=== PATIENT | female | born 1980 | race Caucasian/White ===

== ENCOUNTER → 2018-03-10 | Outpatient (CLI) | payer OTHER ==
[2018-03-10 18:44] LABS: BASOPHILS # (AUTO) 0.1 10^3/uL (0.0-0.1); BASOPHILS % (AUTO) 0.9 %; EOSINOPHILS # (AUTO) 0.1 10^3/uL (0.0-0.7); EOSINOPHILS % (AUTO) 0.8 %; HGB - HEMOGLOBIN 13.6 g/dL (12.0-16.0); LYMPHOCYTES # (AUTO) 2.2 10^3/uL (1.5-3.5); LYMPHOCYTES % (AUTO) 30.4 %; MEAN CORPUSCULAR HEMOGLOBIN 28.1 pg (27.0-31.0); MEAN CORPUSCULAR HGB CONC 33.6 g/dL (32.0-36.0); MEAN CORPUSCULAR VOLUME 83.6 fL (81.0-99.0); MEAN PLATELET VOLUME 8.6 fL (7.9-10.8); MONOCYTES # (AUTO) 0.6 10^3/uL (0.0-1.0); MONOCYTES % (AUTO) 7.8 %; NEUTROPHILS # (AUTO) 4.4 10^3/uL (1.5-6.6); NEUTROPHILS % (AUTO) 60.1 %; PLT - PLATELET COUNT 345 10^3/uL (130-450); RED BLOOD COUNT 4.83 10^6/uL (4.20-5.40); RED CELL DISTRIBUTION WIDTH 13.6 % (12.0-15.0); WHITE BLOOD COUNT 7.3 x10^3/uL (4.8-10.8)
[2018-03-10 18:57] LABS: ALBUMIN 4.5 g/dL (3.2-5.5); ALBUMIN/GLOBULIN RATIO 1.3 (1.0-2.2); ALKALINE PHOSPHATASE 176 IU/L (42-121); ALT ALANINE AMINOTRANSFERASE 88 IU/L (10-60); AST ASPARTATE AMINOTRANSFERASE 60 IU/L (10-42); BILIRUBIN,TOTAL 0.6 mg/dL (0.2-1.0); BUN - BLOOD UREA NITROGEN 11 mg/dL (6-20); CALCIUM 9.6 mg/dL (8.5-10.3); CARBON DIOXIDE - CO2 24 mmol/L (21-32); CHLORIDE 102 mmol/L (101-111); CHOL/HDL RATIO 3.7 (<4.4); CHOLESTEROL 176 mg/dL; CREATININE 0.6 mg/dL (0.4-1.0); GFR - MDRD 111 (>89); GLUCOSE 82 mg/dL (70-100); HDL CHOLESTEROL 48 mg/dL; LDL CHOLESTEROL,CALCULATED 101 mg/dL; LDL/HDL RATIO 2.1 (<4.4); SODIUM 135 mmol/L (135-145); VLDL CHOLESTEROL 27 mg/dL
[2018-03-10 19:14] LABS: THYROID STIMULATING HORMONE 1.93 uIU/mL (0.34-5.60)
[2018-03-10 19:16] LABS: FREE T4 (FREE THYROXINE) 0.9 ng/dL (0.58-1.64)
[2018-03-10 19:21] LABS: FERRITIN 133.4 ng/mL (11.0-306.8)
[2018-03-10 19:25] LABS: FOLATE 13.39 ng/mL (5.90 - >24.8)
[2018-03-10 19:42] LABS: HB2 TOTAL 14.2 g/dL; HEMOGLOBIN A1C 0.44 g/dL
== END ==
LOC: LAB.N 11:12
PROVIDERS: ATTEND Nurse Practitioner Family
DX: E66.9 Obesity, unspecified (principal)
CPT/HCPCS: 36415; 80053; 80061; 82306; 82607; 82728; 82746; 83036; 83721; 84439; 84443; 85025; 85027

== ENCOUNTER 2018-04-13 13:50 | Outpatient (CLI) | payer OTHER ==
[2018-04-13 19:38] LABS: ALBUMIN 4.6 g/dL (3.2-5.5); BILIRUBIN,DIRECT 0.1 mg/dL (0.1-0.5); BILIRUBIN,TOTAL 0.4 mg/dL (0.2-1.0); TOTAL PROTEIN 7.7 g/dL (6.7-8.2)
[2018-04-14 13:21] LABS: HEPATITIS C ANTIBODY NON-REACTIVE (NON-REACTIVE)
[2018-04-14 13:36] LABS: HEPATITIS B SURFACE ANTIGEN NON-REACTIVE (NON-REACTIVE)
[2018-04-14 13:37] LABS: HEPATITIS A AB TOTAL(IMMUNITY) NON-REACTIVE (NON-REACTIVE); HEPATITIS B CORE AB TOTAL NON-REACTIVE (NON-REACTIVE)
[2018-04-14 13:47] LABS: IMMUNOGLOBULIN E 9 kU/L (<OR=114)
[2018-04-15 13:02] LABS: ANA SCREEN NEGATIVE (NEGATIVE)
[2018-04-15 15:36] LABS: CERULOPLASMIN 20 mg/dL (18-53)
[2018-04-16 00:37] LABS: LIVER KIDNEY MICROSOME AB <20.0 U
== END 2018-04-13 23:59 | disposition home or self-care (01) ==
LOC: LAB.N 13:50
PROVIDERS: ATTEND Nurse Practitioner
DX: E55.9 Vitamin D deficiency, unspecified (principal); K83.1 Obstruction of bile duct; R79.89 Other specified abnormal findings of blood chemistry
CPT/HCPCS: 36415; 80076; 81599; 82103; 82306; 82390; 82785; 83516; 83540; 84466; 86038; 86255; 86317; 86376; 86704; 86708; 86803; 87340

== ENCOUNTER 2018-04-21 06:58 | Outpatient (CLI) | payer OTHER ==
--- NOTE | 2018-04-21 10:12 | Ultrasound Report ---
Reason: INTRAHEPATIC CHOLESTASIS, ABDOMINAL PAIN Procedure Date: 04/21/2018 Accession Number: [id number] / [id number] Procedure: US - Abdomen Complete CPT Code: FULL RESULT: EXAM: ABDOMEN ULTRASOUND EXAM DATE: 04/21/2018 08:34 AM. CLINICAL HISTORY: Intrahepatic cholestasis, abdominal pain. COMPARISON: None. TECHNIQUE: Real-time scanning was performed with static images obtained. FINDINGS: Liver: Liver background echotexture is heterogeneous and demonstrates increased echogenicity. This makes detection and evaluation of masses difficult. Despite this limitation, multiple suspicious-appearing relatively hypoechoic masses are seen including a 1.9 x 1.0 x 1.6 cm left lobe mass and a 3.0 x 3.2 cm right lobe mass. The entire caudate lobe is either atrophied or replaced by a mass as it is irregular-appearing, shrunken and demonstrates a different echotexture. The right lobe of the liver measures at least 16.8 cm. Main portal vein flow: Hepatopetal. Gallbladder: Normal. No stones, wall thickening, or sonographic Roca's sign. Biliary System: Common bile duct measures 3 mm. No intrahepatic or extrahepatic ductal dilatation. Pancreas: Visualized portion is unremarkable. Kidneys: Right: 10.5 cm longitudinally. Normal. No contour-deforming mass, stones, or khloe hydronephrosis. Left: 11.1 cm longitudinally. There is mild prominence of the left renal collecting system. No contour-deforming mass, stones, or khloe hydronephrosis. A 1 cm simple-appearing cyst is noted. Spleen: 11.5 cm. Normal in size and echotexture. Aorta and Inferior Vena Cava: Unremarkable. Other: None. IMPRESSION: Multiple liver masses. These are suspicious. Depending on other clinical information, recommend either CT abdomen and pelvis to rule out of source primary lesion or multiphase MRI/CT liver mass protocol for characterization of suspected primary hepatic masses. Heterogeneous echogenic liver parenchyma, possibly steatosis. Mild prominence of the left renal collecting system without khloe hydronephrosis. Correlate to renal function. [facility] ADDENDUM: 04/27/2018 07:50 Addendum is performed to correct reporting of the gallbladder on initial report of 04/21/2018: the gallbladder is surgically absent.
== END 2018-04-21 06:59 | disposition home or self-care (01) ==
LOC: DI 06:58
PROVIDERS: ATTEND Nurse Practitioner
DX: R16.0 Hepatomegaly, not elsewhere classified (principal); K83.1 Obstruction of bile duct; R10.9 Unspecified abdominal pain; G89.29 Other chronic pain
CPT/HCPCS: 76700

== ENCOUNTER 2018-05-13 14:29 | Outpatient (CLI) | payer OTHER ==
[2018-05-13 19:11] LABS: ALBUMIN 4.4 g/dL (3.2-5.5); ALBUMIN/GLOBULIN RATIO 1.3 (1.0-2.2); BILIRUBIN,TOTAL 0.4 mg/dL (0.2-1.0); CALCIUM 9.1 mg/dL (8.5-10.3); CREATININE 0.7 mg/dL (0.4-1.0); TOTAL PROTEIN 7.7 g/dL (6.7-8.2)
== END 2018-05-13 23:59 | disposition home or self-care (01) ==
LOC: LAB.N 14:29
PROVIDERS: ATTEND Nurse Practitioner
DX: R79.89 Other specified abnormal findings of blood chemistry (principal)
CPT/HCPCS: 36415; 80053

== ENCOUNTER 2018-10-17 11:08 | Outpatient (CLI) | payer OTHER ==
--- NOTE | 2018-10-18 17:54 | Ultrasound Report ---
Reason: LIVER MASS, ABNORMAL LIVER ENZYMES Procedure Date: 10/17/2018 Accession Number: [id number] / [id number] Procedure: US - Abdomen Limited CPT Code: FULL RESULT: EXAM: ABDOMEN ULTRASOUND LIMITED, RUQ EXAM DATE: 10/17/2018 12:00 PM. CLINICAL HISTORY: Liver mass. Abnormal liver enzymes. COMPARISON: Abdominal ultrasound from 04/21/2018. TECHNIQUE: Real-time scanning was performed with static images obtained. FINDINGS: Liver: There is diffuse increased hepatic parenchymal echogenicity, as seen on the prior examination. Overall hepatic size is within normal limits with the right hepatic lobe measuring 16.3 cm. As seen on the prior examination, there are multiple liver lesions. These include: 1. A 1.7 x 1.1 x 1.4 cm hypoechoic lesion in the inferior aspect of the left hepatic lobe, previously 1.9 x 1.0 x 1.6 cm. 2. Slightly hypoechoic in the posterior aspect of the right hepatic lobe measuring 4.3 x 3.9 x 4.7 cm. 3. Nearly isoechoic in the superior aspect of segment 7/8 measuring 4.6 x 2.8 x 4.0 cm. 4. Hypoechoic lesion in segment 5/6 measuring 3.3 x 1.9 x 4.4 cm. Precise comparison of lesions in the right hepatic lobe are difficult. However, on the prior examination, the largest lesion was described as measuring 3.0 x 3.2 cm; therefore, there may have been increase in size of these lesions. Main portal vein flow: Hepatopetal. Gallbladder: Not visualized. Reportedly surgically absent. Biliary System: CBD measures 4 mm. No intrahepatic or extrahepatic ductal dilatation. Other: Pancreas is not well evaluated due to overlying bowel. Right kidney measures 10.3 cm longitudinally. No hydronephrosis. IMPRESSION: 1. Diffusely increased hepatic parenchymal echogenicity, which is a nonspecific finding but is most commonly seen as sequela of hepatic steatosis. 2. Multiple hepatic lesions. Lesion in the left hepatic lobe does not appear significantly changed. Multiple lesions in the right hepatic lobe are difficult to compare to the prior examination; however, largest lesion measures up to 4.6 cm, which is greater than the previously described largest lesion. Therefore, these may have increased in size. Although potentially representing benign liver lesions, such as hemangioma, focal nodular hyperplasia, or adenoma, concerning lesions, including metastases, cannot be excluded. Further evaluation with liver MRI is recommended. RADIA
== END 2018-10-17 11:09 | disposition home or self-care (01) ==
LOC: DI 11:08
PROVIDERS: ATTEND Physician Assistant
DX: K76.89 Other specified diseases of liver (principal); R94.5 Abnormal results of liver function studies
CPT/HCPCS: 36415; 76705; 80076

== ENCOUNTER 2018-10-17 13:57 | Outpatient (CLI) | payer OTHER ==
[2018-10-17 12:27] LABS: ALBUMIN 4.3 g/dL (3.2-5.5); BILIRUBIN,DIRECT 0.1 mg/dL (0.1-0.5); BILIRUBIN,TOTAL 0.7 mg/dL (0.2-1.0); TOTAL PROTEIN 7.8 g/dL (6.7-8.2)
== END 2018-10-17 23:59 | disposition home or self-care (01) ==
LOC: LAB 13:57
PROVIDERS: ATTEND Physician Assistant
DX: K76.89 Other specified diseases of liver (principal); R94.5 Abnormal results of liver function studies
CPT/HCPCS: 36415; 80076

== ENCOUNTER 2019-10-11 06:39 | Outpatient (CLI) | payer OTHER ==
[2019-10-11 08:05] LABS: ALBUMIN 4.2 g/dL (3.2-5.5); BILIRUBIN,DIRECT 0.1 mg/dL (0.1-0.5); BILIRUBIN,TOTAL 0.8 mg/dL (0.2-1.0); TOTAL PROTEIN 7.5 g/dL (6.7-8.2)
--- NOTE | 2019-10-11 10:10 | Ultrasound Report ---
Reason: LIVER MASS Procedure Date: 10/11/2019 Accession Number: [id number] / [id number] Procedure: US - Abdomen Limited CPT Code: Final Report FULL RESULT: PROCEDURE: Abdomen Limited INDICATIONS: LIVER MASS TECHNIQUE: Real-time focused scanning was performed of the abdomen, with image documentation. COMPARISON: 10/17/2018 04/21/2018 FINDINGS: The liver echotexture is quite coarse and moderately hyperechoic. There is ill-defined mildly hypoechoic lesion in the left hepatic lobe measuring 1.8 x 1.6 x 1.0 cm. Heterogeneously hypoechoic mass in the inferior right hepatic lobe measures 2.8 x 2.3 x 3.1 cm and demonstrates internal vascularity. There is an area of relative hyperechogenicity in the superior aspect of the right upper lobe which measures 4.0 x 3.9 x 3.3 cm. There may be vascular flow towards and within this area. No intrahepatic biliary dilatation. The common duct is normal caliber at 4.9 mm. There is no perihepatic ascites. The gallbladder is surgically absent. The visible portions of the right kidney appear normal. The kidney measures 10.0 cm in length and there is no hydronephrosis. IMPRESSION: 1. Coarse hepatic echotexture may suggest intrinsic liver disease or fatty infiltration. 2. 3, somewhat ill-defined and indeterminate liver masses are suboptimally visualized by ultrasound. The lesion in the left hepatic lobe and inferior right hepatic lobe are probably stable. Good comparison of the superior right hepatic lobe lesion cannot be completed on the study. 3. These lesions may be better visualized with cross sectional imaging, preferably MRI. Reviewed by: Ghazal Cortez MD on 10/11/2019 10:09 AM PDT Approved by: Ghazal Cortez MD on 10/11/2019 10:09 AM PDT Station ID: [id number]
== END 2019-10-11 06:40 | disposition home or self-care (01) ==
LOC: DI 06:39
PROVIDERS: ATTEND Physician Assistant
DX: K76.89 Other specified diseases of liver (principal)
CPT/HCPCS: 36415; 76705; 80076

== ENCOUNTER 2019-11-29 09:35 | Outpatient (CLI) | payer OTHER ==
[2019-11-29 10:10] LABS: ALBUMIN 4.8 g/dL (3.2-5.5); ALKALINE PHOSPHATASE 142 IU/L (42-121); ALT ALANINE AMINOTRANSFERASE 46 IU/L (10-60); AST ASPARTATE AMINOTRANSFERASE 35 IU/L (10-42); BILIRUBIN,DIRECT 0.1 mg/dL (0.1-0.5); BILIRUBIN,TOTAL 0.8 mg/dL (0.2-1.0); CHOL/HDL RATIO 3.1 (<4.4); CHOLESTEROL 166 mg/dL; GLUCOSE,FASTING 108 mg/dL (70-100); HDL CHOLESTEROL 53 mg/dL; LDL CHOLESTEROL,CALCULATED 91 mg/dL; LDL/HDL RATIO 1.7 (<4.4); TOTAL PROTEIN 8.1 g/dL (6.7-8.2); VLDL CHOLESTEROL 22 mg/dL
== END 2019-11-29 09:36 | disposition home or self-care (01) ==
LOC: LAB 09:35
PROVIDERS: ATTEND Physician Assistant
DX: K76.89 Other specified diseases of liver (principal); R94.5 Abnormal results of liver function studies
CPT/HCPCS: 36415; 80061; 80076; 82947; 83721

== ENCOUNTER 2020-10-05 02:31 | Emergency (ER) | payer OTHER ==
[2020-10-05] MEDS ORDERED: ONDANSETRON 4 MG/2 ML VIAL IVP STA (02:47)
[2020-10-05] MEDS ORDERED: SODIUM CHLORIDE 0.9% 1,000 ML IV STA (02:47)
[2020-10-05] MEDS ORDERED: KETOROLAC 15 MG/ML VIAL IVP STA (02:47)
[2020-10-05 03:01] LABS: BASOPHILS # (AUTO) 0.1 10^3/uL (0.0-0.1); BASOPHILS % (AUTO) 0.9 %; EOSINOPHILS # (AUTO) 0.1 10^3/uL (0.0-0.7); EOSINOPHILS % (AUTO) 0.8 %; HCT - HEMATOCRIT 39.3 % (37.0-47.0); HGB - HEMOGLOBIN 12.8 g/dL (12.0-16.0); LYMPHOCYTES # (AUTO) 1.9 10^3/uL (1.5-3.5); MEAN CORPUSCULAR HEMOGLOBIN 28.2 pg (27.0-31.0); MEAN CORPUSCULAR HGB CONC 32.6 g/dL (32.0-36.0); MEAN CORPUSCULAR VOLUME 86.6 fL (81.0-99.0); MEAN PLATELET VOLUME 9.6 fL (7.9-10.8); MONOCYTES # (AUTO) 0.4 10^3/uL (0.0-1.0); MONOCYTES % (AUTO) 6.9 %; NEUTROPHILS # (AUTO) 3.9 10^3/uL (1.5-6.6); NEUTROPHILS % (AUTO) 61.1 %; PLT - PLATELET COUNT 295 10^3/uL (130-450); RED BLOOD COUNT 4.54 10^6/uL (4.20-5.40); RED CELL DISTRIBUTION WIDTH 13.2 % (12.0-15.0); WHITE BLOOD COUNT 6.4 x10^3/uL (4.8-10.8)
--- NOTE | 2020-10-05 03:10 | ED Physician Documentation ---
History of Present Illness - Stated complaint Stated Complaint: ABD PX/VOMITING - Chief complaint Chief Complaint: Abd Pain - Additonal information Additional information: 39-year-old woman with past medical history of kidney stones presents with right flank and lower back pain radiating to the right lower quadrant, sudden onset at 1 AM waking her from sleep, sharp, constant, severe, 10 out of 10 associated with nonbloody nonbilious nausea and vomiting. Denies fevers or urinary symptoms. Review of Systems Ten Systems: 10 systems reviewed and negative Constitutional: denies: Fever GI: reports: Abdominal Pain, Nausea, Vomiting. denies: Constipation, Diarrhea : denies: Dysuria PD PAST MEDICAL HISTORY - Past Medical History Past Medical History: Yes : Kidney stones - Past Surgical History Past Surgical History: Yes General: Cholecystectomy - Present Medications Home Medications: Ambulatory Orders Medication Instructions Recorded Confirmed Cefpodoxime Proxetil [Vantin] 100 mg PO Q12H 10 Days #20 tablet 10/05/20 Ondansetron Odt [Zofran Odt] 4 mg TL Q6H PRN #10 tablet 10/05/20 Tamsulosin [Flomax] 0.4 mg PO DAILY 14 Days #14 tab 10/05/20 oxyCODONE/ACET 5/325 [Percocet 5 1 each PO Q4-6H #14 tablet 10/05/20 mg/325 mg] - Allergies Allergies/Adverse Reactions: Allergies Allergy/AdvReac Type Severity Reaction Status Date / Time No Known Drug Allergies Allergy Verified 10/05/20 02:43 - Social History Does the pt smoke?: No Smoking Status: Never smoker Does the pt drink ETOH?: No Does the pt have substance abuse?: No - Immunizations Immunizations are current?: Yes - POLST Patient has POLST: No PD ED PE NORMAL - Vitals Vital signs reviewed: Yes - General General: Alert and oriented X 3, No acute distress, Well developed/nourished - HEENT HEENT: Atraumatic, PERRL, EOMI - Neck Neck: Supple, no meningeal sign - Cardiac Cardiac: RRR - Respiratory Respiratory: No respiratory distress, Clear bilaterally - Abdomen Abdomen: Non tender, Non distended - Back Back: Other (Right CVA tender to palpation.) - Derm Derm: Normal color - Extremities Extremities: No deformity - Neuro Neuro: Alert and oriented X 3 - Psych Psych: Normal mood, Normal affect Results - Vitals Vitals: Vital Signs - 24 hr 10/05/20 10/05/20 10/05/20 02:44 02:45 03:45 Temperature 36.9 C 36.9 C 36.9 C Heart Rate 80 80 69 Respiratory 18 18 16 Rate Blood Pressure 130/81 H 130/81 H 111/73 O2 Saturation 100 100 99 Oxygen O2 Source Room air - Labs Labs: Laboratory Tests 10/05/20 10/05/20 10/05/20 02:55 02:55 03:31 WBC 6.4 RBC 4.54 Hgb 12.8 Hct 39.3 MCV 86.6 MCH 28.2 MCHC 32.6 RDW 13.2 Plt Count 295 MPV 9.6 Neut # (Auto) 3.9 Lymph # (Auto) 1.9 [place] # (Auto) 0.4 Eos # (Auto) 0.1 Baso # (Auto) 0.1 Absolute Nucleated RBC 0.00 Nucleated RBC % 0.0 Sodium 137 Potassium 3.7 Chloride 103 Carbon Dioxide 26 Anion Gap 8.0 BUN 15 Creatinine 0.6 Estimated GFR (MDRD) 110 Glucose 111 H Calcium 9.4 Total Bilirubin 0.6 AST 45 H ALT 80 H Alkaline Phosphatase 170 H Total Protein 7.4 Albumin 4.6 Globulin 2.8 Albumin/Globulin Ratio 1.6 Lipase 33 Urine Color BROWN Urine Clarity SL. CLOUDY Urine pH 5.0 Ur Specific [place] >=1.030 H Urine Protein 100 H Urine Glucose (UA) NEGATIVE Urine Ketones NEGATIVE Urine Occult Blood LARGE H Urine Nitrite POSITIVE H Urine Bilirubin NEGATIVE Urine Urobilinogen 1 (NORMAL) Ur Leukocyte Esterase NEGATIVE Urine RBC TNTC H Urine WBC 0-3 Ur Squamous Epith Cells NONE SEEN Urine Bacteria Few Ur Microscopic Review INDICATED Urine Culture Comments INDICATED Urine HCG, Qual 10/05/20 03:31 WBC RBC Hgb Hct MCV MCH MCHC RDW Plt Count MPV Neut # (Auto) Lymph # (Auto) [place] # (Auto) Eos # (Auto) Baso # (Auto) Absolute Nucleated RBC Nucleated RBC % Sodium Potassium Chloride Carbon Dioxide Anion Gap BUN Creatinine Estimated GFR (MDRD) Glucose Calcium Total Bilirubin AST ALT Alkaline Phosphatase Total Protein Albumin Globulin Albumin/Globulin Ratio Lipase Urine Color Urine Clarity Urine pH Ur Specific [place] Urine Protein Urine Glucose (UA) Urine Ketones Urine Occult Blood Urine Nitrite Urine Bilirubin Urine Urobilinogen Ur Leukocyte Esterase Urine RBC Urine WBC Ur Squamous Epith Cells Urine Bacteria Ur Microscopic Review Urine Culture Comments Urine HCG, Qual NEGATIVE PD MEDICAL DECISION MAKING - ED course ED course: 39-year-old woman presents with symptoms concerning for right-sided kidney stone, with mild to moderate hydronephrosis on bedside [id number] ultrasound. We will assess kidney function and assess for urinary tract infection, treat symptoms and if normal she will f/u outpatient urology. 4am - patient with persistent symptoms s/p 10mg toradol, 6mg morphine. will give third dose pain meds. also note uti. will obtain ct to eval size of stone. may need transfer given infected stone. 4:30am - symptoms are well controlled. Discussed with patient's that she has a small stone that appears to be close to the bladder outlet at the distal right ureter on CT. Discussed benefits of admission versus outpatient follow up and they are opting for outpatient urology, so we will discharge with outpatient antibiotics, symptomatic care, and strict return precautions. Departure - Departure Disposition: 01 Home, Self Care Clinical Impression: Kidney stone, UTI (urinary tract infection) Condition: Good Instructions: Kidney Stones Follow-Up: Niki Kirby MD [Physician No Access] - Prescriptions: Tamsulosin [Flomax] 0.4 mg PO DAILY 14 Days #14 tab oxyCODONE/ACET 5/325 [Percocet 5 mg/325 mg] 1 each PO Q4-6H #14 tablet Cefpodoxime Proxetil [Vantin] 100 mg PO Q12H 10 Days #20 tablet Ondansetron Odt [Zofran Odt] 4 mg TL Q6H PRN #10 tablet PRN Reason: Nausea / Vomiting Comments: You were seen in the emergency department for kidney stones. Your bedside ultrasound did not show signs of severe blockage. Your CT showed a stone at the distal ureter (the far end of the tube between the kidney and bladder). Your kidney function tests were normal. Your urine showed signs of infection so I gave an antibiotic (IV rocephin) and a prescription. Please follow-up with a urologist this week for further evaluation. Return to the emergency department if you experience fever or chills, have any new or worsening symptoms or other concerns.
[2020-10-05 03:13] LABS: ALBUMIN 4.6 g/dL (3.2-5.5); ALBUMIN/GLOBULIN RATIO 1.6 (1.0-2.2); BILIRUBIN,TOTAL 0.6 mg/dL (0.2-1.0); CALCIUM 9.4 mg/dL (8.5-10.3); CREATININE 0.6 mg/dL (0.4-1.0); POTASSIUM 3.7 mmol/L (3.5-5.0); TOTAL PROTEIN 7.4 g/dL (6.7-8.2)
[2020-10-05] MEDS ORDERED: MORPHINE 2 MG/ML CARPUJECT IVP STA ×2 (03:33→03:57)
[2020-10-05 03:37] LABS: GLUCOSE, URINE (UA) NEGATIVE (NEGATIVE); KETONES,URINE (UA) NEGATIVE (NEGATIVE); LEUKOCYTE ESTERASE, URINE NEGATIVE (NEGATIVE); NITRITE,URINE POSITIVE (NEGATIVE); OCCULT BLOOD,URINE LARGE (NEGATIVE); PROTEIN,URINE 100 mg/dL (NEGATIVE); UROBILINOGEN,URINE 1 (NORMAL) E.U./dL (NORMAL)
[2020-10-05 03:40] LABS: BILIRUBIN,URINE NEGATIVE (NEGATIVE); CLARITY,URINE SL. CLOUDY (CLEAR); HCG UR QUAL NEGATIVE; ICTOTEST,URINE NEGATIVE
[2020-10-05 03:43] LABS: BACTERIA,URINE Few /HPF (None Seen); RBC,URINE TNTC /HPF (0-5); SQUAMOUS EPITHELIAL CELL,UR NONE SEEN (<= Few); WBC,URINE 0-3 /HPF (0-5)
[2020-10-05] MEDS ORDERED: cefTRIAXone 1 GM in SODIUM CHLORIDE 0.9% MINIBAG 100 ML IV STA (03:54)
[2020-10-05] MEDS ORDERED: cefTRIAXone 1 GM VIAL ONE (04:00)
[2020-10-05 05:02] VITALS: BP 105/68
--- NOTE | 2020-10-05 08:46 | CT Report ---
PROCEDURE: Abdomen/Pelvis WO INDICATIONS: kidney stone with uti TECHNIQUE: Noncontrast 5 mm thick sections acquired from the diaphragms to the symphysis. 5 mm coronal and sagi ttal reformats were then performed. For radiation dose reduction, the following was used: automated exposure control, adjustment of mA and/or kV according to patient size. COMPARISON: Correlation is made with abdominal ultrasound, 10/11/2019. FINDINGS: Image quality: Excellent. ABDOMEN: Lung bases: Lung bases are clear. Heart size is normal. Solid organs: The liver demonstrates normal size. No significant noncontrast liver abnormality can be seen. The spleen demonstrates normal size, without focal lesions seen without contrast. Gallbladder has been removed. Pancreas is normal in contours. No adrenal nodules. Within the distal right ureter, there is an obstructing stone measuring 2 to 3 mm, as on series 3 alida ge 126 and on series 6 image 54. There is associated moderate right-sided hydroureter and hydronephro sis. Within the right kidney, there is a nonobstructing 2 mm stone seen, as on series 3 image 60. No nonob structing left-sided kidney stones are seen. The kidneys demonstrate normal size. No left-sided hydro nephrosis. Peritoneum and bowel: Unenhanced bowel loops demonstrate normal wall thickness and caliber. No free fluid or air. Bariatric surgery can be seen. A moderate amount of stool can be seen within the col on. Nodes and vessels: No retroperitoneal or mesenteric adenopathy by size criteria. Aorta and inferior vena cava are normal in caliber. Miscellaneous: No ventral hernias. PELVIS: Genitourinary: Bladder wall thickness is normal. The uterus demonstrates an unremarkable appearance for age. No adnexal masses are seen. Miscellaneous: No inguinal hernias or adenopathy. Bones: No suspicious bony lesions. No vertebral body compression fractures. IMPRESSION: Distal right ureter obstructing stone, with associated right-sided hydroureter and hydronephrosis. There is a 2 mm nonobstructing stone seen within the right kidney. There is a moderate amount of stool seen within the colon. Please correlate with clinical constipatio n. Incidental note is made of: Bariatric surgery Cholecystectomy Note: No significant discrepancy from the preliminary report. Reviewed by: Chadwick Lee MD on 10/05/2020 7:45 AM AKDT Approved by: Chadwick Lee MD on 10/05/2020 7:45 AM MARITZA Station ID: [id number]
== END 2020-10-05 05:02 | disposition home or self-care (01) ==
LOC: ED 02:31
DX: N13.2 Hydronephrosis with renal and ureteral calculous obstruction (principal); N39.0 Urinary tract infection, site not specified
CPT/HCPCS: 36415; 80053; 81001; 81003; 81025; 83690; 85025; 87086; 96361; 96365; 96375; 99284

== ENCOUNTER 2020-10-16 09:00 | Emergency (ER) | payer OTHER ==
--- OUTSIDE RECORDS SUMMARY | 2020-10-16 09:03 | EXTERNAL MEDICAL SUMMARY RPT | Continuity of Care Document ---
:1980 Demographics Phone Unavailable Preferred Language Unknown Marital Status Unknown Adventist Affiliation Unknown Race Unknown Ethnic Group Unknown Author Organization [facility] Address [address] [phone] Phone Allergies Encounters Medications Problems Results
--- OUTSIDE RECORDS SUMMARY | 2020-10-16 09:06 | EXTERNAL MEDICAL SUMMARY RPT | Continuity of Care Document ---
:1980 Demographics Phone Unavailable Preferred Language Unknown Marital Status Unknown Confucianism Affiliation Unknown Race Unknown Ethnic Group Unknown Author Organization [facility] Address [address] [phone] Phone Allergies Encounters Medications Problems Results
[2020-10-16] MEDS ORDERED: MORPHINE 2 MG/ML CARPUJECT IVP STA (09:14)
[2020-10-16] MEDS ORDERED: SODIUM CHLORIDE 0.9% 1,000 ML IV STA (09:14)
[2020-10-16] MEDS ORDERED: KETOROLAC 30 MG/ML VIAL IVP STA (09:14)
[2020-10-16 09:15] LABS: BILIRUBIN,URINE NEGATIVE (NEGATIVE); GLUCOSE, URINE (UA) NEGATIVE (NEGATIVE); KETONES,URINE (UA) NEGATIVE (NEGATIVE); LEUKOCYTE ESTERASE, URINE NEGATIVE (NEGATIVE); NITRITE,URINE NEGATIVE (NEGATIVE); OCCULT BLOOD,URINE NEGATIVE (NEGATIVE); PROTEIN,URINE NEGATIVE (NEGATIVE); UROBILINOGEN,URINE 0.2 (NORMAL) E.U./dL (NORMAL)
[2020-10-16 09:16] LABS: CLARITY,URINE CLEAR (CLEAR)
--- NOTE | 2020-10-16 09:16 | ED Physician Documentation ---
PD HPI ABD PAIN - Stated complaint Stated Complaint: LOW BACK PX - Chief complaint Chief Complaint: Abd Pain - History obtained from History obtained from: Patient, Family - Additional information Additional information: 39-year-old woman seen 10 days ago for 2 mm distal right ureteral stone with pain. She also had nonobstructing stone within the right kidney. She was pain- free until this morning and suddenly developed similar severe right-sided abdominal pain. No nausea. She had a single episode of dysuria this morning. No gross hematuria. Review of Systems Ten Systems: 10 systems reviewed and negative Constitutional: denies: Fever, Chills Cardiac: reports: Reviewed and negative Respiratory: reports: Reviewed and negative PD PAST MEDICAL HISTORY - Past Medical History : Kidney stones - Past Surgical History Past Surgical History: Yes General: Cholecystectomy - Present Medications Home Medications: Ambulatory Orders Medication Instructions Recorded Confirmed Cefpodoxime Proxetil [Vantin] 100 mg PO Q12H 10 Days #20 tablet 10/05/20 Ondansetron Odt [Zofran Odt] 4 mg TL Q6H PRN #10 tablet 10/05/20 Tamsulosin [Flomax] 0.4 mg PO DAILY 14 Days #14 tab 10/05/20 oxyCODONE/ACET 5/325 [Percocet 5 1 each PO Q4-6H #14 tablet 10/05/20 mg/325 mg] Ondansetron Odt [Zofran] 4 mg TL Q6H PRN #10 tablet 10/16/20 Oxycodone HCl/Acetaminophen 1 - 2 each PO Q6H PRN #14 tablet 10/16/20 [Percocet 5-325 mg Tablet] - Allergies Allergies/Adverse Reactions: Allergies Allergy/AdvReac Type Severity Reaction Status Date / Time No Known Drug Allergies Allergy Verified 10/16/20 09:06 - Social History Does the pt smoke?: No Smoking Status: Never smoker Does the pt drink ETOH?: No Does the pt have substance abuse?: No - Immunizations Immunizations are current?: Yes - POLST Patient has POLST: No PD ED PE NORMAL - Vitals Vital signs reviewed: Yes - General General: Alert and oriented X 3, Other (Appears uncomfortable, pacing) - Abdomen Abdomen: Soft, Non tender - Back Back: No CVA TTP, No spinal TTP - Derm Derm: Normal color, Warm and dry - Neuro Neuro: Alert and oriented X 3, Normal speech Results - Vitals Vitals: Vital Signs - 24 hr 10/16/20 09:03 Temperature 36.3 C L Heart Rate 75 Respiratory 16 Rate Blood Pressure 123/78 O2 Saturation 98 Oxygen O2 Source Room air - Labs Labs: Laboratory Tests 10/16/20 10/16/20 09:08 09:30 Sodium 138 Potassium 3.8 Chloride 102 Carbon Dioxide 27 Anion Gap 9.0 BUN 9 Creatinine 0.6 Estimated GFR (MDRD) 110 Glucose 108 H Calcium 9.9 Urine Color YELLOW Urine Clarity CLEAR Urine pH 6.0 Ur Specific [place] 1.015 Urine Protein NEGATIVE Urine Glucose (UA) NEGATIVE Urine Ketones NEGATIVE Urine Occult Blood NEGATIVE Urine Nitrite NEGATIVE Urine Bilirubin NEGATIVE Urine Urobilinogen 0.2 (NORMAL) Ur Leukocyte Esterase NEGATIVE Ur Microscopic Review NOT INDICATED Urine Culture Comments NOT INDICATED PD MEDICAL DECISION MAKING - ED course ED course: 39-year-old woman presents with renal colic. Unclear if this is the same stone that was bothering her 10 days ago or she did have another nephrolith on that side at that time. Regardless we were able to manage her pain here after a couple of doses of narcotics and 1 dose of Toradol. She felt comfortable going home and requested discharge. Understands the need for follow-up. I am prescribing a short course of short-acting opioid pain medication for this patient. I have reviewed the patients [employer] and no concerning findings were noted. I have discussed that the opioids are for short term therapy only, and will not be refilled from the ED. Departure - Departure Disposition: 01 Home, Self Care Clinical Impression: Renal colic Condition: Good Record reviewed to determine appropriate education?: Yes Instructions: ED Stone Renal W Colic Prescriptions: Oxycodone HCl/Acetaminophen [Percocet 5-325 mg Tablet] 1 - 2 each PO Q6H PRN #14 tablet PRN Reason: pain Ondansetron Odt [Zofran] 4 mg TL Q6H PRN #10 tablet PRN Reason: Nausea / Vomiting Comments: Urine normal today, no evidence of UTI. Return if symptoms are intolerable or for other new or worsening issues. [place] consider urology referral although the previous stone was quite small and should not need intervention. I am prescribing a short course of narcotic pain medication for you. These are potentially dangerous and addictive medications that should be used carefully. These medications may constipate you. Take an ubkl-hxy-oldcnwt stool softener (docusate) twice daily with plenty of water while taking these medications. If you go 24 hours without a bowel movement, take ivgr-ito-ryuxezl miralax, per package instructions. Do not drink or drive while taking these medications. If you received narcotic or sedating medications while in the emergency de partment, do not drive for 24 hours. Store this medication in a safe, secure place and out of reach of children. It is a violation of federal law to give or sell this medication to another person or to use in a manner other than prescribed. The ED will not refill narcotic prescriptions, including prescriptions lost or stolen. To dispose of unwanted medications: 1. [facility] [address] in [place] has a medication drop box. They accept prescription medications (in pill form) Wednesday through Wednesday 9:00 a.m. to 5:00 p.m. 2. The [facility] [place] [employer] accepts prescription medications (in pill form only) for disposal year round. Call for more information. 3. Contact the [facility] for the next [facility] sponsored prescription drug collection event. , [phone], or [phone]; Note that many narcotic pain relievers also contain Tylenol/acetaminophen. Please ensure that your total dose of acetaminophen from all sources does not exceed 3 g (3000 mg) per day.
[2020-10-16] MEDS ORDERED: HYDROmorphone 1 MG/ML CARPUJECT IVP STA (10:03)
[2020-10-16 10:06] LABS: CALCIUM 9.9 mg/dL (8.5-10.3); CREATININE 0.6 mg/dL (0.4-1.0); POTASSIUM 3.8 mmol/L (3.5-5.0)
[2020-10-16] MEDS ORDERED: ONDANSETRON 4 MG/2 ML VIAL IVP STA (10:58)
[2020-10-16 11:25] VITALS: BP 114/65
== END 2020-10-16 11:38 | disposition home or self-care (01) ==
LOC: ED 09:00
DX: N23 Unspecified renal colic (principal); Z87.442 Personal history of urinary calculi
CPT/HCPCS: 36415; 80048; 81003; 96374; 96375; 99284; 99285; J1170; 81001; 87086